=== PATIENT | male | born 1985 | race Two or more races ===

== ENCOUNTER → 2020-02-21 07:35 | Outpatient (CLI) | payer BC, SELFPAY ==
--- NOTE | 2020-02-21 07:35 | MR_ITS ---
PROCEDURE: MR ANGIO HEAD WO CON CLINICAL INDICATION: eval for posterior circulation pathology DIZZINESS AND WEIGHT LOSS. COMPARISON: No exams were available for comparison TECHNIQUE: Routine multiplanar multi echo sequences are performed without gadolinium enhancement. FINDINGS: No aneurysm, arteriovenous malformation, dissection, or major intracranial occlusive process. The left vertebral artery is dominant. The vertebral basilar system has an unremarkable appearance. Single-shot MRV is unremarkable. IMPRESSION: Negative MRA of brain Dictated by: Arnulfo De La Fuente MD 02/22/2020 10:36 Arnulfo De La Fuente MD in [place] 02/22/2020 10:36
--- NOTE | 2020-02-21 07:35 | MR_ITS ---
PROCEDURE: MR HEAD/BRAIN WO/W CON CLINICAL INDICATION: Eval for abnormality DIZZINESS AND WEIGHT LOSS. COMPARISON: No exams were available for comparison TECHNIQUE: Routine multiplanar multi echo sequences are performed without and with gadolinium enhancement. FINDINGS: No midline shift, mass effect, intracranial hemorrhage, or hydrocephalus. No evidence of acute infarction. No enhancing lesions are apparent. There is slight increase in the amount of CSF in the right CP angle compared to the left side and may represent a small arachnoid cyst measuring approximately 14 x 8 mm. No enhancement is evident at this region. The hippocampal gyri have an unremarkable appearance. No enhancing lesion is evident. The pituitary, optic chiasm, corpus callosum, and craniocervical junction have an unremarkable appearance. There is a 14 x 12 mm lesion which is along the lateral aspect of the sphenoid sinus on the right projecting posterior to the maxillary sinus and superior to the medial pterygoid. This is isointense on T1 and demonstrates some minimal peripheral contrast enhancement at and may represent a retention cyst within and lateral extension of the sphenoid sinus. CT may confirm. There is a small retention cyst in the left sphenoid sinus laterally. IMPRESSION: 1. No acute intracranial findings. 2. Suspect small incidental arachnoid cyst in the right CP angle. 3. Left mastoid effusion. 4. There is a 14 x 12 mm lesion which is along the lateral aspect of the sphenoid sinus on the right projecting posterior to the maxillary sinus and superior to the medial pterygoid. This may represent a retention cyst within a lateral extension of the sphenoid sinus. CT of the sinuses may confirm. Dictated by: Arnulfo De La Fuente MD 02/22/2020 10:33 Arnulfo De La Fuente MD in [place] 02/22/2020 10:33
== END ==
PROVIDERS: PCP Nurse Practitioner Family; Visit Provider Specialist
DX: R42 Dizziness and giddiness (principal); R43.9 Unspecified disturbances of smell and taste; R51.9 Headache, unspecified
CPT/HCPCS: 70544; 70553; A9576

== ENCOUNTER → 2020-02-21 08:57 | Outpatient (CLI) | payer BC, SELFPAY ==
[2020-02-21 09:33] LABS: Basophils % 0.6 % (0.1-2.0); Eosinophils # 0.1 K/mm3 (0.0-0.4); Hematocrit 43.7 % (42.0-52.0); Hemoglobin 13.6 g/dL (14.1-18.0); Lymphocytes # 1.6 K/mm3 (0.7-4.5); Lymphocytes % 20.2 % (10-50); Mean Corpuscular HGB Conc 31.1 g/dL (31.8-35.4); Mean Corpuscular Hemoglobin 30.5 pg (27.0-31.2); Mean Corpuscular Volume 98.1 fl (80-94); Mean Platelet Volume 7.4 fl (7.4-10.4); Monocytes # 0.4 K/mm3 (0.1-1.0); Monocytes % 5.7 % (1.7-9.3); Neutrophils # 5.6 K/mm3 (1.8-7.8); Neutrophils % 72.6 % (37.0-80.0); Platelet Count 199 K/mm3 (142-424); Red Blood Count 4.45 M/mm3 (4.60-6.20); Red Cell Distribution Width 12.7 % (11.5-17.5); White Blood Count 7.7 K/mm3 (4.8-10.8)
[2020-02-21 09:43] LABS: Chloride 108 mmol/L (98-107)
[2020-02-21 09:44] LABS: Potassium 4.1 mmoL/L (3.5-5.1); Sodium 143 mmol/L (136-145)
[2020-02-21 09:46] LABS: Alanine Aminotransferase 28 U/L (12-78); Albumin Level 4.2 g/dl (3.5-5.0); Alkaline Phosphatase 67 U/L (38-126); Aspartate Amino Transferase 19 U/L (17-59); Bilirubin,Total 0.4 mg/dl (0.2-1.3); Blood Urea Nitrogen 5 mg/dl (9-20); Estimated Glomerular Filt Rate 128 ml/min (>60); GFR (African American) 154 ML/MIN (>60)
[2020-02-21 09:47] LABS: Albumin/Globulin Ratio 1.8 (1.1-1.8); Anion Gap 8.1 mEq/L (5-15); Calcium 9.3 mg/dl (8.4-10.2); Carbon Dioxide 31 mmol/L (22.0-30.0); Globulin 2.3 g/dL (1.3-3.2); Glucose 88 mg/dl (74-100); Total Protein,Serum 6.5 g/dl (6.3-8.2)
[2020-02-21 12:12] LABS: Coronavirus 19 IgG Antibody Negative (Negative); Coronavirus 19 IgM Antibody Negative (Negative)
== END ==
PROVIDERS: Visit Provider Nurse Practitioner Family
DX: Z03.818 Encounter for observation for suspected exposure to other biological agents ruled out (principal); R42 Dizziness and giddiness; R43.9 Unspecified disturbances of smell and taste; R51.9 Headache, unspecified; R73.09 Other abnormal glucose
CPT/HCPCS: 36415; 80053; 83036; 85025; 86328

== ENCOUNTER → 2020-02-26 16:38 | Outpatient (CLI) | payer BC, SELFPAY ==
[2020-02-26 19:43] LABS: Vitamin B12 552 pg/mL (239-931)
== END ==
PROVIDERS: Visit Provider Specialist
DX: D75.89 Other specified diseases of blood and blood-forming organs (principal)
CPT/HCPCS: 36415; 82607